=== PATIENT | male | born 1985 | race Caucasian/White ===

== ENCOUNTER 2017-06-24 19:18 | Emergency (ER) | payer MEDICARE, MEDICAID ==
[2017-06-24 19:26] VITALS: BP 123/67
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
--- NOTE | 2017-06-24 20:38 | RADIOLOGY REPORT (SQ) ---
EXAM DESCRIPTION: FOOT LEFT COMPLETE COMPLETED DATE/TIME: 06/24/2017 7:59 pm REASON FOR STUDY: foot injury COMPARISON: None. NUMBER OF VIEWS: Three views. TECHNIQUE: AP, lateral and oblique radiographic images acquired of the left foot. LIMITATIONS: None. FINDINGS: MINERALIZATION: Normal. BONES: No acute fracture or dislocation. Prior 5th metatarsal amputation. JOINTS: No effusions. SOFT TISSUES: No significant soft tissue swelling. No foreign body. OTHER: No other significant finding. IMPRESSION: No acute fracture. TECHNICAL DOCUMENTATION: JOB ID: [id number] [place]-72 2010 [employer]- All Rights Reserved
== END 2017-06-24 21:47 | disposition home or self-care (01) ==
LOC: ER 19:18
DX: S90.32XA Contusion of left foot, initial encounter (principal); S90.812A Abrasion, left foot, initial encounter; W22.8XXA Striking against or struck by other objects, initial encounter
CPT/HCPCS: 99283

== ENCOUNTER 2018-09-16 19:57 | Emergency (ER) | payer MEDICARE, MEDICAID ==
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
[2018-09-16 20:03] VITALS: BP 123/77
--- NOTE | 2018-09-16 21:37 | RADIOLOGY REPORT (SQ) ---
US SCROTUM HISTORY: Right testicular pain and swelling COMPARISON: None. TECHNIQUE: Bowden-scale, color Doppler, and spectral Doppler ultrasound images of the scrotum were obtained. FINDINGS: RIGHT: Normal size and echogenicity of the testis, measuring 3.9 x 2.7 x 3.3 cm. Positive color Doppler flow is present. No focal intratesticular mass is seen. The epididymis also has normal size and echogenicity. LEFT: Normal size and echogenicity of the testis, measuring 3.8 x 2.9 x 2.8 cm. Positive color Doppler flow is present. No focal intratesticular mass is seen. The epididymis also has normal size and echogenicity. OTHER: There are bilateral hydroceles, right greater than left. No varicoceles. No scrotal hernias. There is diffuse edema of the scrotal subcutaneous tissue. IMPRESSION: 1. No evidence of testicular torsion. 2. Bilateral hydroceles, greater on the right. 3. Diffuse scrotal swelling.
[2018-09-16] MEDS ORDERED: HYDROCODONE/ACETAMINOPHEN 5-325 MG (6 TAB/ER DISP) PO PRN (22:56)
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
== END 2018-09-16 23:25 | disposition home or self-care (01) ==
LOC: ER 19:57
DX: N43.3 Hydrocele, unspecified (principal); R10.30 Lower abdominal pain, unspecified; Z88.5 Allergy status to narcotic agent
CPT/HCPCS: 99284; 76870; 93976; A9270

== ENCOUNTER 2019-08-11 20:43 | Emergency (ER) | payer MEDICARE, MEDICAID ==
[2019-08-11] MEDS ORDERED: ACETAMINOPHEN 325 MG TABLET PO ONE (21:05)
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
--- NOTE | 2019-08-11 22:06 | RADIOLOGY REPORT (SQ) ---
EXAM DESCRIPTION: US SCROTUM COMPLETED DATE/TME: 08/11/2019 21:03 CLINICAL HISTORY: 34 years, Male, Painful swollen testicle right COMPARISON: None. TECHNIQUE: Axial 2-D grayscale images of the scrotum were acquired. Doppler was utilized. LIMITATIONS: None. FINDINGS: Right testicle measures 3.4 x 3.9 x 2.9 cm in size. It appears somewhat heterogenous in echogenicity and diffusely hyperemic. In addition, there is a large complex right hydrocele which demonstrates multiple internal septations as well as internal debris. Right epididymal head measures 1.3 x 0.6 x 1.9 cm in size, somewhat enlarged. Left testicle measures 3.8 x 2.3 x 3.3 cm in size. It demonstrates normal echogenicity and normal low resistance arterial waveforms. There is a small left hydrocele which demonstrates low level internal echoes. Left epididymal head appears normal. In addition, both testicles appear to demonstrate tiny foci of echogenicity, indicating microlithiasis. IMPRESSION: Findings indicate right epididymoorchitis. Associated large complex right hydrocele. 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 In the absence of any other risk factors for testicular cancer (e.g., personal history of testicular cancer, a father or brother with testicular cancer, history of cryptorchidism or maldescent, testicular atrophy, or other risk factors), no further imaging or biochemical follow-up is necessary; all that is recommended is routine monthly testicular self-examination. However, if the patient has risk factors for testicular cancer, referral to a urologist for evaluation and determination of an optimal follow-up strategy is recommended. Small complex left hydrocele. Read More: https://www.ajronline.org/doi/full/10.2214/AJR.15.15738 copyright 2011 [employer]- All Rights Reserved
[2019-08-11 22:37] LABS: HEMOGLOBIN 15.3 g/dL (13.5-17.0); MEAN CORPUSCULAR HEMOGLOBIN 29.8 pg (27.0-33.4); MEAN CORPUSCULAR HGB CONC 34.7 g/dL (32.0-36.0); MEAN CORPUSCULAR VOLUME 86 fl (80-97); PLATELET COUNT 331 10^3/uL (150-450); RED BLOOD COUNT 5.14 10^6/uL (4.35-5.55); RED CELL DISTRIBUTION WIDTH 13.9 % (11.5-14.0)
[2019-08-11 22:51] LABS: ALKALINE PHOSPHATASE 92 U/L (38-126); ANION GAP 10 (5-19); ASPARTATE AMINO TRANSFERASE 23 U/L (17-59); BILIRUBIN,DIRECT 0.3 mg/dL (0.0-0.4); BILIRUBIN,TOTAL 0.6 mg/dL (0.2-1.3); BLOOD UREA NITROGEN 13 mg/dL (7-20); CALCIUM 9.4 mg/dL (8.4-10.2); CARBON DIOXIDE 26 mmol/L (22-30); CHLORIDE 101 mmol/L (98-107); GLUCOSE 86 mg/dL (75-110); POTASSIUM 4.2 mmol/L (3.6-5.0); TOTAL PROTEIN 7.1 g/dL (6.3-8.2)
[2019-08-11 22:56] LABS: ABSOLUTE LYMPHOCYTES# (MANUAL) 3.4 10^3/uL (0.5-4.7); ABSOLUTE MONOCYTES # (MANUAL) 0.9 10^3/uL (0.1-1.4); BAND NEUTROPHILS % (MANUAL) 2 % (3-5); BASOPHILS % (MANUAL) 0 % (0-2); EOSINOPHILS % (MANUAL) 1 % (0-6); LYMPHOCYTES % (MANUAL) 9 % (13-45); MONOCYTES % (MANUAL) 3 % (3-13); SEGMENTED NEUTROPHILS % (MAN) 83 % (42-78); TOTAL CELLS COUNTED 100
[2019-08-11 23:00] LABS: OVALOCYTES SLIGHT; PLATELET COMMENT ADEQUATE; POIKILOCYTOSIS SLIGHT
[2019-08-11 23:03] LABS: WHITE BLOOD COUNT 30.5 10^3/uL (4.0-10.5)
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
[2019-08-12] MEDS ORDERED: NORMAL SALINE 1000 ML 1,000 ML IV ONE (00:26)
[2019-08-12] MEDS ORDERED: LEVOFLOXACIN 750 MG/D5W RTU 750 MG/150 ML RTUPB IV ONE (00:26)
[2019-08-12 01:01] LABS: APPEARANCE,URINE CLEAR; BILIRUBIN,URINE NEGATIVE (NEGATIVE); COLOR,URINE YELLOW; GLUCOSE, URINE NEGATIVE (NEGATIVE); KETONES,URINE NEGATIVE (NEGATIVE); PROTEIN,URINE NEGATIVE (NEGATIVE); URINE SPECIFIC GRAVITY 1.014
[2019-08-12] MEDS ORDERED: OXYCODONE-ACETAMINOPHEN 5-325 MG TABLET PO ONE (07:02)
[2019-08-12 08:05] VITALS: BP 78/63
[2019-08-14 13:53] LABS: PATH REVIEW PATHOLOGIST REVIEWED
== END 2019-08-12 08:05 | disposition short-term general hospital (02) ==
LOC: ER 20:43
DX: N45.3 Epididymo-orchitis (principal); R50.9 Fever, unspecified; N50.811 Right testicular pain; G82.20 Paraplegia, unspecified; F17.200 Nicotine dependence, unspecified, uncomplicated; Z88.6 Allergy status to analgesic agent; Z86.14 Personal history of Methicillin resistant Staphylococcus aureus infection; Z98.1 Arthrodesis status
CPT/HCPCS: 99285; 96361; 96365; 36415; 87040; 83690; 85025; 80053; 81001; 87150 ×26; 76870; 93976; A9270 ×2; J7030; J1956; 87077

== ENCOUNTER → 2020-01-11 | Outpatient (CLI) | payer MEDICARE, MEDICAID ==
--- NOTE | 2020-01-11 10:50 | RADIOLOGY REPORT (SQ) ---
EXAM DESCRIPTION: U/S SCROTUM W/O DOPPLER IMAGES COMPLETED DATE/TIME: 01/11/2020 10:32 am REASON FOR STUDY: PAIN IN LEFT TESTICLE (N50.812) N50.812 LEFT TESTICULAR PAIN COMPARISON: 08/11/2019. TECHNIQUE: Static and realtime esquivel scale imaging of the scrotum and testes. Selected color Doppler and spectral images recorded to document blood flow. LIMITATIONS: None. FINDINGS: RIGHT: TESTICLE: Normal size. Normal echotexture. Normal blood flow. No mass. EPIDIDYMIS: 2.5 cm epididymal cyst. HYDROCELE OR VARICOCELE: Complex septated hydrocele with debris. HERNIA OR EXTRA-TESTICULAR MASS: No. OTHER: No other significant finding. LEFT: TESTICLE: Normal size. Normal echotexture. Normal blood flow. No mass. EPIDIDYMIS: Normal. HYDROCELE OR VARICOCELE: Small to moderate hydrocele with scattered debris. HERNIA OR EXTRA-TESTICULAR MASS: No. OTHER: No other significant finding. IMPRESSION: 1. COMPLEX SEPTATED RIGHT HYDROCELE WITH DEBRIS. SMALL TO MODERATE LEFT HYDROCELE WITH SOME DEBRIS. SIMILAR APPEARANCE TO THE PRIOR STUDY. 2. UNREMARKABLE TESTICULAR ULTRASOUND. NO EVIDENCE OF TESTICULAR MASS OR TORSION. TECHNICAL DOCUMENTATION: JOB ID: [id number] 2010 [employer]- All Rights Reserved Reading location - IP/workstation name: [email or web address]
== END ==
LOC: RAD 09:47
PROVIDERS: ATTEND Family Medicine
DX: N50.812 Left testicular pain (principal); N43.3 Hydrocele, unspecified
CPT/HCPCS: 76870

== ENCOUNTER 2020-02-28 13:30 | Inpatient (IN) | payer MEDICARE, MEDICAID ==
[2020-02-28] MEDS ORDERED: ACETAMINOPHEN 325 MG TABLET PO ONE (13:46)
[2020-02-28] MEDS ORDERED: NORMAL SALINE 1000 ML 1,000 ML IV ONE (13:47)
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
[2020-02-28 14:20] LABS: VENOUS BLOOD BASE EXCESS -1.3 mmol/L; VENOUS BLOOD HCO3 23.6 mmol/L (20-32); VENOUS BLOOD PCO2 40.7 mmHg (35-63); VENOUS BLOOD PH 7.38 (7.30-7.42)
[2020-02-28 14:28] LABS: PROTHROMBIN TIME 16.4 SEC (11.4-15.4)
[2020-02-28 14:29] LABS: HEMATOCRIT 47.8 % (37.9-51.0); HEMOGLOBIN 16.6 g/dL (13.5-17.0); MEAN CORPUSCULAR HEMOGLOBIN 29.8 pg (27.0-33.4); MEAN CORPUSCULAR HGB CONC 34.8 g/dL (32.0-36.0); MEAN CORPUSCULAR VOLUME 86 fl (80-97); PLATELET COUNT 218 10^3/uL (150-450); RED BLOOD COUNT 5.59 10^6/uL (4.35-5.55); RED CELL DISTRIBUTION WIDTH 14.4 % (11.5-14.0); WHITE BLOOD COUNT 28.1 10^3/uL (4.0-10.5)
[2020-02-28] MEDS ORDERED: VANCOMYCIN HCL INJ 1000 MG VIAL IV ONE ×2 (14:35→15:02)
[2020-02-28 14:37] LABS: ALBUMIN 4.1 g/dL (3.5-5.0); ALKALINE PHOSPHATASE 72 U/L (38-126); ANION GAP 9 (5-19); ASPARTATE AMINO TRANSFERASE 35 U/L (17-59); BILIRUBIN,DIRECT 0.4 mg/dL (0.0-0.4); BILIRUBIN,TOTAL 0.7 mg/dL (0.2-1.3); BLOOD UREA NITROGEN 15 mg/dL (7-20); CALCIUM 9.1 mg/dL (8.4-10.2); CARBON DIOXIDE 24 mmol/L (22-30); CHLORIDE 100 mmol/L (98-107); GLUCOSE 101 mg/dL (75-110); POTASSIUM 3.8 mmol/L (3.6-5.0); TOTAL PROTEIN 6.6 g/dL (6.3-8.2)
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
[2020-02-28 15:07] LABS: ABSOLUTE LYMPHOCYTES# (MANUAL) 1.7 10^3/uL (0.5-4.7); ABSOLUTE MONOCYTES # (MANUAL) 0.6 10^3/uL (0.1-1.4); BAND NEUTROPHILS % (MANUAL) 1 % (3-5); BASOPHILS % (MANUAL) 0 % (0-2); EOSINOPHILS % (MANUAL) 0 % (0-6); LYMPHOCYTES % (MANUAL) 6 % (13-45); MONOCYTES % (MANUAL) 2 % (3-13); SEGMENTED NEUTROPHILS % (MAN) 91 % (42-78); TOTAL CELLS COUNTED 100
[2020-02-28 15:08] LABS: ANISOCYTOSIS SLIGHT; PLATELET COMMENT ADEQUATE
--- NOTE | 2020-02-28 15:14 | EKG REPORT ---
SEVERITY:- BORDERLINE ECG - SINUS TACHYCARDIA PROBABLE LEFT ATRIAL ABNORMALITY BORDERLINE T WAVE ABNORMALITIES : Confirmed by: Rico Ward MD 28-Feb-2020 15:14:05
--- NOTE | 2020-02-28 15:15 | RADIOLOGY REPORT (SQ) ---
EXAM DESCRIPTION: CHEST SINGLE VIEW IMAGES COMPLETED DATE/TIME: 02/28/2020 3:02 pm REASON FOR STUDY: 16; lower extremity edema COMPARISON: None. EXAM PARAMETERS: NUMBER OF VIEWS: One view. TECHNIQUE: An AP view of the chest was obtained. RADIATION DOSE: NA LIMITATIONS: None. FINDINGS: LUNGS AND PLEURA: No consolidation, pleural effusion or pneumothorax. MEDIASTINUM AND HILAR STRUCTURES: No mediastinal or hilar contour abnormality. HEART AND VASCULAR STRUCTURES: The cardiac silhouette and pulmonary vasculature are within normal interiano its. BONES: No acute findings. HARDWARE: Fusion hardware in the thoracic and cervical spines. OTHER: No other finding. IMPRESSION: No acute cardiopulmonary process. TECHNICAL DOCUMENTATION: JOB ID: [id number] 2010 [employer]- All Rights Reserved Reading location - IP/workstation name: [email or web address]
[2020-02-28 15:59] LABS: APPEARANCE,URINE SLIGHTLY-CLOUDY; BILIRUBIN,URINE NEGATIVE (NEGATIVE); COLOR,URINE AMBER; GLUCOSE, URINE NEGATIVE (NEGATIVE); KETONES,URINE TRACE mg/dL (NEGATIVE); LEUKOCYTE ESTERASE,URINE TRACE (NEGATIVE); NITRITE,URINE NEGATIVE (NEGATIVE); PROTEIN,URINE 30 mg/dL (NEGATIVE); URINE SPECIFIC GRAVITY 1.028
[2020-02-28 16:12] LABS: ADD MANUAL MICROSCOPIC YES
[2020-02-28] MEDS: RINGERS SOLUTION,LACTATED 1,000 ML IV PRN ×2 (17:19→22:25)
[2020-02-28] MEDS ORDERED: VANCOMYCIN HCL 0 MG in DEXTROSE 5%-WATER 250 ML IV NR (18:30)
[2020-02-28] MEDS ORDERED: DIAZEPAM 5 MG TABLET PO SCH (18:30)
--- NOTE | 2020-02-28 18:37 | RADIOLOGY REPORT (SQ) ---
EXAM DESCRIPTION: VENOUS UNILATERAL LOWER IMAGES COMPLETED DATE/TIME: 02/28/2020 4:18 pm REASON FOR STUDY: LLE pain, swelling COMPARISON: None. TECHNIQUE: Dynamic and static esquivel scale and color images acquired of the left leg venous system. Se lected spectral images acquired with additional compression and augmentation maneuvers. The contralat eral common femoral vein and saphenofemoral junction were also imaged. Images stored on PACS. LIMITATIONS: None. FINDINGS: COMMON FEMORAL: Normal phasicity, compression and augmentation. No visualized echogenic ma terial on esquivel scale. No defects on color images. FEMORAL: Normal compression and augmentation. No visualized echogenic material on esquivel scale. No defe cts on color images. POPLITEAL: Normal compression, augmentation. No visualized echogenic material on esquivel scale. No defec ts on color images. CALF VESSELS: Normal compression, augmentation. No visualized echogenic material on esquivel scale. No de fects on color images. Peroneal veins cannot be seen. GSV and SSV: Normal compression, augmentation. No visualized echogenic material on esquivel scale. No def ects on color images. ANY DEEP VENOUS INSUFFICIENCY: Not evaluated. ANY EVIDENCE OF POPLITEAL CYST: No. OTHER: No other significant finding. CONTRALATERAL COMMON FEMORAL VEIN AND SAPHENOFEMORAL JUNCTION: Normal phasicity, compression and augmentation. No visualized echogenic material on esquivel scale. No de fects on color images. IMPRESSION: NO EVIDENCE DVT OR SVT IN THE LEFT LEG. TECHNICAL DOCUMENTATION: JOB ID: [id number] 2010 [employer]- All Rights Reserved Reading location - IP/workstation name: [email or web address]
[2020-02-28] MEDS ORDERED: AZTREONAM INJ 1 GM VIAL ONE (19:11)
[2020-02-28] MEDS: AZTREONAM 1 GM in DEXTROSE 5%-WATER 50 ML IV SCH ×2 (19:41→22:22)
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
[2020-02-28] MEDS: ACETAMINOPHEN 325 MG TABLET PO PRN (20:03)
--- NOTE | 2020-02-28 20:18 | RADIOLOGY REPORT (SQ) ---
EXAM DESCRIPTION: CT LOWER EXTREMITY WITH IV CONTRAST COMPLETED DATE/TME: 02/28/2020 00:00 CLINICAL HISTORY: 35 years Male sepsis 2/2 LLE cellulitis from L foot up to L knee COMPARISON: None. TECHNIQUE: Contiguous axial CT images obtained through the left lower extremity IV contrast. Reformatted images obtained. This exam was performed according to our department optimization program which includes automated exposure control, adjustment of the mA and/or kv according to patient size and/or use of iterative reconstruction technique. FINDINGS: There is diffuse subcutaneous stranding and soft tissue thickening over the lower leg beginning at the level of the knee, worse along the anterior and lateral aspect and extending over the dorsal surface of the foot. Findings are consistent with cellulitis and edema but are nonspecific. There appears to be some stranding within the muscles of the anterior compartment which may reflect associated myositis. No focal fluid collection is noted. IMPRESSION: Findings consistent with cellulitis and edema along the lower leg and dorsal surface of the foot as described without evidence of focal drainable abscess No bone destruction to suggest osteomyelitis Small amount of stranding along the superior aspect of the anterior compartment musculature which could reflect some associated myositis.
[2020-02-28] MEDS ORDERED: (PENDING PHARMACY ID) (Prazosin Hcl [Minipress] 1 MG) PO SCH (22:00)
[2020-02-28] MEDS ORDERED: (PENDING PHARMACY ID) (Mirtazapine [Mirtazapine] 45 MG) PO SCH (22:00)
[2020-02-28] MEDS: MIRTAZAPINE 15 MG TABLET PO SCH (22:23)
[2020-02-28] MEDS: DULOXETINE HCL 30 MG CAPSULE.DR PO SCH (22:24)
[2020-02-28] MEDS: FAMOTIDINE 20 MG TABLET PO SCH (22:24)
[2020-02-28] MEDS ORDERED: DIAZEPAM 5 MG TABLET PO PRN (23:00)
[2020-02-29] MEDS: VANCOMYCIN HCL 1,250 MG in DEXTROSE 5%-WATER 250 ML IV SCH ×3 (02:42→18:28)
[2020-02-29] MEDS: ACETAMINOPHEN 325 MG TABLET PO PRN (04:31)
[2020-02-29 04:46] LABS: HEMATOCRIT 40.3 % (37.9-51.0); MEAN CORPUSCULAR HEMOGLOBIN 29.2 pg (27.0-33.4); MEAN CORPUSCULAR HGB CONC 34.4 g/dL (32.0-36.0); MEAN CORPUSCULAR VOLUME 85 fl (80-97); PLATELET COUNT 200 10^3/uL (150-450); RED BLOOD COUNT 4.75 10^6/uL (4.35-5.55); WHITE BLOOD COUNT 22.7 10^3/uL (4.0-10.5)
[2020-02-29 04:57] LABS: ALBUMIN 3.1 g/dL (3.5-5.0); ALKALINE PHOSPHATASE 79 U/L (38-126); ANION GAP 11 (5-19); ASPARTATE AMINO TRANSFERASE 29 U/L (17-59); BILIRUBIN,DIRECT 0.4 mg/dL (0.0-0.4); BILIRUBIN,TOTAL 0.7 mg/dL (0.2-1.3); BLOOD UREA NITROGEN 11 mg/dL (7-20); CALCIUM 8.6 mg/dL (8.4-10.2); CARBON DIOXIDE 21 mmol/L (22-30); CHLORIDE 102 mmol/L (98-107); CHOLESTEROL 165.55 mg/dL (0-200); GLUCOSE 135 mg/dL (75-110); POTASSIUM 3.5 mmol/L (3.6-5.0); TOTAL PROTEIN 5.4 g/dL (6.3-8.2); TRIGLYCERIDES 126 mg/dL (<150)
[2020-02-29 05:07] LABS: DIRECT LDL 92 mg/dL (<100)
[2020-02-29 05:30] LABS: HEMOGLOBIN 13.9 g/dL (13.5-17.0)
[2020-02-29 05:36] LABS: ABSOLUTE LYMPHOCYTES# (MANUAL) 1.8 10^3/uL (0.5-4.7); ABSOLUTE MONOCYTES # (MANUAL) 0.2 10^3/uL (0.1-1.4); BAND NEUTROPHILS % (MANUAL) 5 % (3-5); BASOPHILS % (MANUAL) 0 % (0-2); EOSINOPHILS % (MANUAL) 0 % (0-6); LYMPHOCYTES % (MANUAL) 6 % (13-45); MONOCYTES % (MANUAL) 1 % (3-13); SEGMENTED NEUTROPHILS % (MAN) 86 % (42-78); TOTAL CELLS COUNTED 100
[2020-02-29] MEDS: AZTREONAM 1 GM in DEXTROSE 5%-WATER 50 ML IV SCH ×3 (05:37→22:31)
[2020-02-29 05:38] LABS: ANISOCYTOSIS SLIGHT; PLATELET COMMENT ADEQUATE; TOXIC VACUOLATION PRESENT
[2020-02-29] MEDS ORDERED: POTASSI CL 40 MEQ/NS 1L 1,000 ML IV PRN (08:48)
[2020-02-29] MEDS: DULOXETINE HCL 30 MG CAPSULE.DR PO SCH ×2 (09:53→22:30)
[2020-02-29] MEDS: FAMOTIDINE 20 MG TABLET PO SCH ×2 (09:54→22:31)
[2020-02-29] MEDS: OXYCODONE HCL IR 5 MG TABLET PO PRN ×2 (09:54→18:31)
[2020-02-29] MEDS ORDERED: FUROSEMIDE 40 MG TABLET PO SCH (10:00)
[2020-02-29] MEDS: NICOTINE 14 MG/24 HR PATCH.TD24 TD SCH (10:11)
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
[2020-02-29] MEDS ORDERED: DIAZEPAM 2 MG TABLET PO SCH (18:00)
[2020-02-29] MEDS: DIAZEPAM 5 MG TABLET PO SCH (18:28)
[2020-02-29 18:32] LABS: VANCOMYCIN,TROUGH 9.8 ug/mL (5.0-20.0)
[2020-02-29] MEDS: MIRTAZAPINE 15 MG TABLET PO SCH (22:31)
[2020-03-01] MEDS: VANCOMYCIN HCL 1,500 MG in DEXTROSE 5%-WATER 250 ML IV SCH ×3 (02:00→17:10)
[2020-03-01] MEDS: AZTREONAM 1 GM in DEXTROSE 5%-WATER 50 ML IV SCH ×2 (05:26→13:27)
[2020-03-01] MEDS: OXYCODONE HCL IR 5 MG TABLET PO PRN ×3 (06:26→20:35)
[2020-03-01 06:35] LABS: ABSOLUTE EOSINOPHILS # (AUTO) 0.1 10^3/uL (0.0-0.6); ABSOLUTE LYMPHOCYTES (AUTO) 2.7 10^3/uL (0.5-4.7); ABSOLUTE MONOCYTES (AUTO) 1.1 10^3/uL (0.1-1.4); ABSOLUTE NEUT (AUTO) 10.1 10^3/uL (1.7-8.2); BASOPHILS % (AUTO) 0.3 % (0-2); EOSINOPHILS % (AUTO) 0.6 % (0-6); HEMATOCRIT 37.2 % (37.9-51.0); HEMOGLOBIN 12.9 g/dL (13.5-17.0); LYMPHOCYTES % (AUTO) 19.1 % (13-45); MEAN CORPUSCULAR HEMOGLOBIN 29.2 pg (27.0-33.4); MEAN CORPUSCULAR HGB CONC 34.6 g/dL (32.0-36.0); MEAN CORPUSCULAR VOLUME 84 fl (80-97); PLATELET COUNT 191 10^3/uL (150-450); RED BLOOD COUNT 4.41 10^6/uL (4.35-5.55); TOTAL CELLS COUNTED % (AUTO) 100 %
[2020-03-01 07:02] LABS: ALBUMIN 2.8 g/dL (3.5-5.0); ALKALINE PHOSPHATASE 80 U/L (38-126); ANION GAP 7 (5-19); ASPARTATE AMINO TRANSFERASE 16 U/L (17-59); BILIRUBIN,DIRECT 0.4 mg/dL (0.0-0.4); BILIRUBIN,TOTAL 0.6 mg/dL (0.2-1.3); BLOOD UREA NITROGEN 7 mg/dL (7-20); CALCIUM 8.2 mg/dL (8.4-10.2); CARBON DIOXIDE 26 mmol/L (22-30); CHLORIDE 103 mmol/L (98-107); GLUCOSE 103 mg/dL (75-110); POTASSIUM 3.7 mmol/L (3.6-5.0); TOTAL PROTEIN 5.3 g/dL (6.3-8.2)
[2020-03-01] MEDS: DULOXETINE HCL 30 MG CAPSULE.DR PO SCH ×2 (09:28→21:20)
[2020-03-01] MEDS: NICOTINE 14 MG/24 HR PATCH.TD24 TD SCH (09:28)
[2020-03-01] MEDS: FAMOTIDINE 20 MG TABLET PO SCH ×2 (09:28→21:21)
[2020-03-01] MEDS: DIAZEPAM 5 MG TABLET PO PRN (11:59)
[2020-03-01] MEDS ORDERED: POTASSIUM CHLORIDE 10 MEQ TABLET.ER PO ONE (14:43)
[2020-03-01] MEDS: DIAZEPAM 5 MG TABLET PO SCH (17:07)
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
[2020-03-01] MEDS ORDERED: CEFTRIAXONE 1 GM/D5W RTU 1 GM/50 ML RTUPB IV SCH (19:30)
[2020-03-01] MEDS: POTASSIUM CHLORIDE 10 MEQ TABLET.ER PO SCH (20:20)
[2020-03-01] MEDS: FUROSEMIDE INJ/PF 20 MG/2 ML SDV IV SCH (21:21)
[2020-03-01] MEDS: MIRTAZAPINE 15 MG TABLET PO SCH (21:21)
[2020-03-02 06:22] LABS: ABSOLUTE BASOPHILS # (AUTO) 0.1 10^3/uL (0.0-0.2); ABSOLUTE EOSINOPHILS # (AUTO) 0.3 10^3/uL (0.0-0.6); ABSOLUTE LYMPHOCYTES (AUTO) 2.6 10^3/uL (0.5-4.7); ABSOLUTE MONOCYTES (AUTO) 1.5 10^3/uL (0.1-1.4); ABSOLUTE NEUT (AUTO) 7.2 10^3/uL (1.7-8.2); BASOPHILS % (AUTO) 0.5 % (0-2); EOSINOPHILS % (AUTO) 2.4 % (0-6); HEMATOCRIT 39.4 % (37.9-51.0); HEMOGLOBIN 13.5 g/dL (13.5-17.0); LYMPHOCYTES % (AUTO) 22.6 % (13-45); MEAN CORPUSCULAR HEMOGLOBIN 29.2 pg (27.0-33.4); MEAN CORPUSCULAR HGB CONC 34.2 g/dL (32.0-36.0); MEAN CORPUSCULAR VOLUME 85 fl (80-97); PLATELET COUNT 211 10^3/uL (150-450); RED BLOOD COUNT 4.62 10^6/uL (4.35-5.55); SEGMENTED NEUTROPHILS % (AUTO) 61.5 % (42-78); TOTAL CELLS COUNTED % (AUTO) 100 %; WHITE BLOOD COUNT 11.6 10^3/uL (4.0-10.5)
[2020-03-02 06:35] LABS: ALKALINE PHOSPHATASE 107 U/L (38-126); ANION GAP 8 (5-19); ASPARTATE AMINO TRANSFERASE 21 U/L (17-59); BILIRUBIN,DIRECT 0.3 mg/dL (0.0-0.4); BILIRUBIN,TOTAL 0.5 mg/dL (0.2-1.3); BLOOD UREA NITROGEN 7 mg/dL (7-20); CALCIUM 8.5 mg/dL (8.4-10.2); CARBON DIOXIDE 23 mmol/L (22-30); CHLORIDE 108 mmol/L (98-107); GLUCOSE 101 mg/dL (75-110); POTASSIUM 4.6 mmol/L (3.6-5.0); TOTAL PROTEIN 5.6 g/dL (6.3-8.2)
[2020-03-02] MEDS: OXYCODONE HCL IR 5 MG TABLET PO PRN (06:39)
[2020-03-02] MEDS: DIAZEPAM 5 MG TABLET PO PRN (06:39)
[2020-03-02] MEDS: FUROSEMIDE INJ/PF 20 MG/2 ML SDV IV SCH (09:59)
[2020-03-02] MEDS: FAMOTIDINE 20 MG TABLET PO SCH (10:02)
[2020-03-02] MEDS: NICOTINE 14 MG/24 HR PATCH.TD24 TD SCH (10:02)
[2020-03-02] MEDS: POTASSIUM CHLORIDE 10 MEQ TABLET.ER PO SCH (10:02)
[2020-03-02] MEDS: DULOXETINE HCL 30 MG CAPSULE.DR PO SCH (10:02)
[2020-03-02] MEDS ORDERED: CEFTRIAXONE 1 GM/D5W RTU 1 GM/50 ML RTUPB IV SCH (10:15)
[2020-03-02 11:30] VITALS: BP 122/62
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
== END 2020-03-02 12:27 | disposition home or self-care (01) | DRG 872 ==
LOC: ER 13:30 → EH 15:52 → 4N 20:38
PROVIDERS: ADMIT Hospitalist; ATTEND Hospitalist
DX: A41.9 Sepsis, unspecified organism (principal); L03.116 Cellulitis of left lower limb; G82.20 Paraplegia, unspecified; K21.9 Gastro-esophageal reflux disease without esophagitis; F41.8 Other specified anxiety disorders; F17.210 Nicotine dependence, cigarettes, uncomplicated; T14.8XXS Other injury of unspecified body region, sequela; V49.9XXS Car occupant (driver) (passenger) injured in unspecified traffic accident, sequela
CPT/HCPCS: 36415; 71045; 80053; 80061; 80202; 81001; 82803; 82962; 83036; 83605; 83735; 83880; 85025; 85610; 87040; 87070; 87086; 93005; 93010; 93971; 96361; 96365; 99285; J0696; J1940; J3370; J3490; J7030; J7060; J7120

== ENCOUNTER → 2020-03-19 | Outpatient (CLI) | payer MEDICARE, MEDICAID ==
--- NOTE | 2020-03-19 14:51 | XCELERA REPORT ---
[address] [id number] Transthoracic Echocardiogram Report Name: SILVERIO BOYCE II Age: 35 yrs Gender: Male : 1985 Patient Status: Outpatient Patient Location: [facility] Study Date: 03/19/2020 10:26 AM Height: 71 in Weight: 220 lb BSA: 2.2 m2 Procedure: A two-dimensional transthoracic echocardiogram with color flow and Doppler was performed. The study was technically difficult with many images being suboptimal in quality. Reason For Study: EDEMA History: EDEMA. Ordering Physician: RICHIE SAGE Performed By: Delmi Mayer Interpretation Summary The left ventricle is normal in size. Left ventricular systolic function is normal. LV EF is 65% Doppler measurements suggest normal left ventricular diastolic function The left ventricular wall motion is normal. There is no thrombus. No ASD,VSD or PFO seen. The right ventricle is normal in size and function. The right atrium is normal. The left atrial size is normal. There is no evidence of mitral valve prolapse. There is no vegetation seen on the mitral valve. There is no mitral valve stenosis. There is a trace amount of mitral regurgitation There is no aortic valvular vegetation. There is no aortic valve stenosis No aortic regurgitation is present. There is no tricuspid stenosis. There is a trace amount of tricuspid regurgitation Tricuspid regurgitation jet envelope not well defined to measure RV systolic pressure accurately. There is no pulmonic valvular stenosis. There is a trace amount of pulmonic regurgitation The aortic root is normal size. The inferior vena cava appeared normal and decreased > 50% with respiration (RAP 5-10 mmHg) There is no pericardial effusion. MMode/2D Measurements & Calculations RVDd: 2.4 cm LVIDd: 4.8 cm FS: 44.7 % Ao root diam: 3.2 cm IVSd: 0.94 cm LVIDs: 2.7 cm EDV(Teich): 107.6 ml Ao root area: 7.8 cm2 LVPWd: 0.90 cm ESV(Teich): 25.9 ml LA dimension: 2.8 cm EF(Teich): 75.9 % Doppler Measurements & Calculations MV E max bari: MV P1/2t max bari: Ao V2 max: LV V1 max P.7 cm/sec 57.5 cm/sec 114.8 cm/sec 3.5 mmHg MV A max bari: MV P1/2t: 55.0 msec Ao max P.3 mmHg LV V1 max: 55.5 cm/sec MVA(P1/2t): 4.0 cm2 94.1 cm/sec MV E/A: 1.0 MV dec slope: 305.8 cm/sec2 MV dec time: 0.19 sec PA V2 max: PI end-d bari: MV P1/2t-pr_phl: 76.5 cm/sec 83.6 cm/sec 55.0 msec PA max P.3 mmHg Left Ventricle The left ventricle is normal in size. Left ventricular systolic function is normal. LV EF is 65%. Doppler measurements suggest normal left ventricular diastolic function. The left ventricular wall motion is normal. There is no thrombus. No ASD,VSD or PFO seen. Right Ventricle The right ventricle is normal in size and function. Atria The right atrium is normal. The left atrial size is normal. Mitral Valve There is no evidence of mitral valve prolapse. There is no vegetation seen on the mitral valve. There is no mitral valve stenosis. There is a trace amount of mitral regurgitation. Aortic Valve There is no aortic valvular vegetation. There is no aortic valve stenosis. No aortic regurgitation is present. Tricuspid Valve There is no tricuspid stenosis. There is a trace amount of tricuspid regurgitation. Tricuspid regurgitation jet envelope not well defined to measure RV systolic pressure accurately. Pulmonic Valve There is no pulmonic valvular stenosis. There is a trace amount of pulmonic regurgitation. Great Vessels The aortic root is normal size. The inferior vena cava appeared normal and decreased > 50% with respiration (RAP 5-10 mmHg). Effusions There is no pericardial effusion. : RICHIE SAGE Lakshmi
== END ==
LOC: SP 09:44
PROVIDERS: ATTEND Family Medicine
DX: R60.0 Localized edema (principal)
CPT/HCPCS: 93306